=== PATIENT | female | born 1970 | race Caucasian/White ===

== ENCOUNTER 2016-09-09 08:20 | Emergency (ER) | payer OTHER ==
[2016-09-09 08:46] VITALS: BP 128/75; PULSE 85; RESP 16; TEMP 97.7; O2SAT 98
--- NOTE | 2016-09-09 08:58 | EDPHY ---
H & P Stated Complaint: ABDOMINAL PAIN +H PYLORI IN AUGUST Time Seen by Provider: 09/09/16 08:45 HPI/ROS: CHIEF COMPLAINT: Peptic ulcer disease HISTORY OF PRESENT ILLNESS: The patient is a 46-year-old female who comes to the emergency department complaining that she ran out of her antibiotics that she is taking for positive H pylori and peptic ulcer disease. Also she is here requesting an upper endoscopy. She states that she was diagnosed 2 weeks ago with H pylori. She has had chronic abdominal pain. She has a history of cholecystectomy. She was started on amoxicillin, clarithromycin and Pepcid. She states that she did not take the Pepcid regularly because they caused dizziness. The antibiotics seemed to help initially but then her pain came back when she finished them 2 days ago. She was not prescribed Flagyl because she is allergic. She did try taking the Pepcid again last night with moderate improvement. She comes here to the ER today requesting upper endoscopy because she cannot get an appointment to the gastrologist until September. She has not had a fever. REVIEW OF SYSTEMS: Constitutional: denies: chills, fever, recent illness, recent injury EENTM: denies: blurred vision, double vision, nose congestion Respiratory: denies: cough, shortness of breath Cardiac: denies: chest pain, irregular heart rate, lightheadedness, palpitations Gastrointestinal/Abdominal: Epigastric pain Genitourinary: denies: dysuria, frequency, hematuria, pain Musculoskeletal: denies: joint pain, muscle pain Skin: denies: lesions, rash, jaundice, bruising Neurological: denies: headache, numbness, paresthesia, tingling, dizziness, weakness Hematologic/Lymphatic: denies: blood clots, easy bleeding, easy bruising Immunologic/allergic: denies: HIV/AIDS, transplant EXAM: GENERAL: Well-appearing, well-nourished and in no acute distress. HEAD: Atraumatic, normocephalic. EYES: Pupils equal round and reactive to light, extraocular movements intact, sclera anicteric, conjunctiva are normal. ENT: TMs normal, nares patent, oropharynx clear without exudates. Moist mucous membranes. NECK: Normal range of motion, supple without lymphadenopathy or JVD. LUNGS: Breath sounds clear to auscultation bilaterally and equal. No wheezes rales or rhonchi. HEART: Regular rate and rhythm without murmurs, rubs or gallops. ABDOMEN: Soft, nontender, normoactive bowel sounds. No guarding, no rebound. No masses appreciated. BACK: No CVA tenderness, no spinal tenderness, step-offs or deformities EXTREMITIES: Normal range of motion, no pitting or edema. No clubbing or cyanosis. NEUROLOGICAL: Cranial nerves II through XII grossly intact. Normal speech, normal gait. 5/5 strength, normal movement in all extremities, normal sensation PSYCH: Normal mood, normal affect. SKIN: Warm, dry, normal turgor, no visible rashes or lesions. Source: Patient - Personal History LMP (Females 10-55): 22-28 Days Ago Current Tetanus Diphtheria and Acellular Pertussis (TDAP): Yes Tetanus Vaccine Date: 2007 - Medical/Surgical History Hx Asthma: No Hx Chronic Respiratory Disease: No Hx Diabetes: No Hx Cardiac Disease: No Hx Renal Disease: No Hx Cirrhosis: No Hx Alcoholism: No Hx HIV/AIDS: No Hx Splenectomy or Spleen Trauma: No Other PMH: BREAST CA with mastectomy, gallbladder issues, broken right leg - Family History Significant Family History: No pertinent family hx - Social History Smoking Status: Never smoked Alcohol Use: Sober Drug Use: None Constitutional: Initial Vital Signs Temperature (C) 36.5 C 09/09/16 08:43 Heart Rate 85 09/09/16 08:43 Respiratory Rate 16 09/09/16 08:43 Blood Pressure 128/75 H 09/09/16 08:43 O2 Sat (%) 98 09/09/16 08:43 O2 Delivery Mode Room Air Allergies/Adverse Reactions: tamoxifen [Tamoxifen] Allergy (Verified 09/09/16 08:46) FLAGYL Allergy (Uncoded 09/09/16 08:47) Home Medications: Medication Instructions Recorded Amoxicillin 09/09/16 Amoxicillin Trihydrate 500 mg PO Q12H 14 Days 09/09/16 [Amoxicillin] Clarithromycin 09/09/16 Clarithromycin 500 mg PO BID #30 tablet 09/09/16 Omeprazole 09/09/16 Medical Decision Making ED Course/Re-evaluation: The patient is disappointed that we cannot perform upper endoscopy today. She does not really wish to have further blood work. She states that was done at her primary care's office recently. I will refill her prescriptions. She may need a longer course. I also encouraged her to take the an acid as well. Also to follow up with hairspring setter as previously described. Abdominal exam is benign. She is afebrile and well-appearing. Differential Diagnosis: Partial list of the Differential diagnosis considered include but were not limited to; peptic ulcer disease, biliary disease, and although unlikely based on the history and physical exam, I also considered hepatitis, pancreatitis obstruction, appendicitis, pyelonephritis, kidney stone, urinary tract infection. I discussed these differential diagnoses and the plan with the patient as well as the usual and expected course. The patient understands that the diagnosis is provisional and that in medicine we are not always correct and that further workup is often warranted. Usual and customary warnings were given. All of the patient's questions were answered. The patient was instructed to return to the emergency department should the symptoms at all worsen or return, otherwise to followup with the physician as we discussed. Departure - Departure Disposition: Home, Routine, Self-Care Clinical Impression: Peptic ulcer disease Condition: Fair Instructions: Peptic Ulcer (ED) Referrals: May Grimm MD [Primary Care Provider] - As per Instructions Prescriptions: Amoxicillin Trihydrate [Amoxicillin] 500 mg PO Q12H 14 Days Clarithromycin 500 mg PO BID #30 tablet
== END 2016-09-09 09:11 | disposition home or self-care (01) ==
DX: K27.9 Peptic ulcer, site unspecified, unspecified as acute or chronic, without hemorrhage or perforation (principal); Z85.3 Personal history of malignant neoplasm of breast

== ENCOUNTER → 2017-04-16 | Outpatient (CLI) | payer OTHER | LOC: FIMAGING 12:41 | PROVIDERS: ATTEND Internal Medicine | DX: N93.9 Abnormal uterine and vaginal bleeding, unspecified (principal); Z85.3 Personal history of malignant neoplasm of breast; R93.8 Abnormal findings on diagnostic imaging of other specified body structures ==

== ENCOUNTER 2017-07-31 19:16 | Emergency (ER) | payer BC, OTHER ==
[2017-07-31] MEDS ORDERED: ACETAMINOPHEN 325 MG TAB PO ONE (19:54)
[2017-07-31] MEDS ORDERED: NS 1,000 ML IV ONE (19:54)
--- NOTE | 2017-07-31 19:55 | EDPHY ---
H & P Time Seen by Provider: 07/31/17 19:53 HPI/ROS: CHIEF COMPLAINT: Fever, shortness of breath HISTORY OF PRESENT ILLNESS: The patient is a 47 y/o female with a history of breast cancer (6 years ago) complaining of fever and shortness of breath. 12 days ago she developed a cough , chills, body aches, sore throat, and felt lethargic. On Wednesday, 7 days ago, she developed a runny nose. Last night she developed a subjective fever. Her son and have had similar symptoms, but no one has received medical treatment. Denies receiving the influenza vaccination this year. No chest pain, nausea, vomiting, abdominal pain, urinary or bowel complaints, numbness. REVIEW OF SYSTEMS: Aside from elements discussed in the HPI, a comprehensive 10-point review of systems was reviewed and is negative. Past Medical/Surgical History: Breast cancer with mastectomy Social History: , lives in [place], works for [employer] Smoking Status: Never smoked Physical Exam: General Appearance: Alert, pleasant Eyes: Pupils equal and round, no conjunctival pallor or injection ENT, Mouth: Mucous membranes moist Neck: Normal inspection Respiratory: Lungs are clear to auscultation, no wheezing Cardiovascular: Regular rate and rhythm Gastrointestinal: Abdomen is soft and non-tender Neurological: A&O, nonfocal Skin: Warm and dry, no rash Extremities: Nontender, no pedal edema Psychiatric: Mood and affect normal Constitutional: Initial Vital Signs Temperature (C) 37.3 C 07/31/17 19:24 Heart Rate 91 07/31/17 19:24 Respiratory Rate 20 07/31/17 19:24 Blood Pressure 104/68 07/31/17 19:24 O2 Sat (%) 95 07/31/17 19:24 O2 Delivery Mode Room Air Allergies/Adverse Reactions: tamoxifen [Tamoxifen] Allergy (Verified 07/31/17 19:23) FLAGYL Allergy (Uncoded 07/31/17 19:23) Home Medications: Medication Instructions Recorded Azithromycin [Zithromax] 250 mg PO DAILY #6 tab 07/31/17 Medical Decision Making - Diagnostics Imaging Results: Chest x-ray independently reviewed by me reveals no infiltrate. Imaging: I viewed and interpreted images myself ED Course/Re-evaluation: The patient is a 47 y/o female with a history of breast cancer presenting with fever and cough. She is nontoxic-appearing and physical exam is unremarkable. Labs and chest x-ray ordered. 1L IV NS and 650mg PO Tylenol administered. 2041: Patient's chest x-ray is normal, no evidence of pneumonia. I gave her an rx for a Zpak in case of worsening sx. 2044: Reassessed patient and discussed laboratory and imaging findings. Return precautions provided; patient is comfortable with this plan. Differential Diagnosis: Differential diagnosis includes influenza, pneumonia, acute bronchitis, PE. - Data Points Laboratory Results: Laboratory Results 07/31/17 20:10 07/31/17 20:10 07/31/17 07/31/17 20:10 20:10 WBC 5.27 10^3/uL 10^3/uL (3.80-9.50) RBC 4.52 10^6/uL 10^6/uL (4.18-5.33) Hgb 14.3 g/dL g/dL (12.6-16.3) Hct 42.7 % % (38.0-47.0) MCV 94.5 fL fL (81.5-99.8) MCH 31.6 pg pg (27.9-34.1) MCHC 33.5 g/dL g/dL (32.4-36.7) RDW 12.8 % % (11.5-15.2) Plt Count 135 10^3/uL L 10^3/uL (150-400) MPV 10.9 fL fL (8.7-11.7) Neut % (Auto) 81.6 % H % (39.3-74.2) Lymph % (Auto) 12.3 % L % (15.0-45.0) Lee % (Auto) 5.5 % % (4.5-13.0) Eos % (Auto) 0.2 % L % (0.6-7.6) Baso % (Auto) 0.2 % L % (0.3-1.7) Nucleat RBC Rel Count 0.0 % % (0.0-0.2) Absolute Neuts (auto) 4.30 10^3/uL 10^3/uL (1.70-6.50) Absolute Lymphs (auto) 0.65 10^3/uL L 10^3/uL (1.00-3.00) Absolute Monos (auto) 0.29 10^3/uL L 10^3/uL (0.30-0.80) Absolute Eos (auto) 0.01 10^3/uL L 10^3/uL (0.03-0.40) Absolute Basos (auto) 0.01 10^3/uL L 10^3/uL (0.02-0.10) Absolute Nucleated RBC 0.00 10^3/uL 10^3/uL (0-0.01) Immature Gran % 0.2 % % (0.0-1.1) Immature Gran # 0.01 10^3/uL 10^3/uL (0.00-0.10) Sodium 136 mEq/L mEq/L (135-145) Potassium 3.7 mEq/L mEq/L (3.5-5.2) Chloride 99 mEq/L mEq/L (97-110) Carbon Dioxide 23 mEq/l mEq/l (22-31) Anion Gap 14 mEq/L mEq/L (8-16) BUN 6 mg/dL L mg/dL (7-23) Creatinine 0.8 mg/dL mg/dL (0.6-1.0) Estimated GFR > 60 Glucose 100 mg/dL mg/dL (70-100) Calcium 9.2 mg/dL mg/dL (8.5-10.4) Medications Given: Discontinued Medications Acetaminophen (Tylenol) 650 mg PO EDNOW ONE Stop: 07/31/17 19:55 Last Admin: 07/31/17 20:09 Dose: 650 mg Sodium Chloride (Ns) 1,000 mls @ 0 mls/hr IV ONCE ONE; Wide Open PRN Reason: Protocol Stop: 07/31/17 19:55 Last Admin: 07/31/17 20:09 Dose: 1,000 mls Departure - Departure Disposition: Home, Routine, Self-Care Clinical Impression: Acute bronchitis Qualifiers: Bronchitis organism: other organism Qualified Code(s): J20.8 - Acute bronchitis due to other specified organisms Condition: Good Instructions: Acute Bronchitis (ED) Additional Instructions: Take Zithromax as prescribed for worsening symptoms. Call in the morning for flu results. Drink plenty of fluids. Adult Pain & Fever Control: We recommend Acetaminophen (Tylenol) and Ibuprofen (Motrin, Advil) for pain and fever control. When fever is high or pain severe, both drugs can be used at the same time, but at different intervals. Please note the time differences. Your dose is: Acetaminophen 650mg every 4 to 6 hours Ibuprofen 600mg every 8 hours with food. Follow up with your primary care provider in the next week for unimproved symptoms. Return to emergency department or seek care urgently if you're symptoms are worsening despite the above treatment, if you develop shortness of breath, if you're unable to drink fluids secondary to throat pain or other issues, if you developed, vomiting, diarrhea, or have recurrent episodes of fainting. Return immediately for high fever, severe headache or neck pain, difficulty breathing, abdominal pain, rash or other worsening of condition. Referrals: May Grimm MD [Primary Care Provider] - As per Instructions Prescriptions: Azithromycin [Zithromax] 250 mg PO DAILY #6 tab Report Scribed for: Carrol Abrams Report Scribed by: Svetlana Waite Date of Report: 07/31/17 Time of Report: 19:54 Physician Review and Approval Statement: 07/31/17 19:54 Portions of this note were transcribed by a medical csr. I personally performed a history, physical exam, medical decision making, and confirmed accuracy of information the transcribed note.
[2017-07-31 20:14] VITALS: O2SAT 94
[2017-07-31 20:25] LABS: PLATELET COUNT 135 10^3/uL (150-400)
[2017-07-31 21:03] VITALS: BP 109/53; PULSE 80; RESP 18; TEMP 99.5
== END 2017-07-31 21:01 | disposition home or self-care (01) ==
DX: J20.9 Acute bronchitis, unspecified (principal); E86.9 Volume depletion, unspecified

== ENCOUNTER 2017-08-27 13:34 | Day surgery (SDC) | payer OTHER ==
[2017-08-27] MEDS ORDERED: ALTEPLASE 2 MG VIAL IVP PRN (14:22)
[2017-08-27] MEDS ORDERED: PROTAMINE SULFATE 50 MG/5 ML VIAL IVP PRN (14:22)
[2017-08-27] MEDS ORDERED: NALOXONE HCL 0.4 MG/ML INJ IVP PRN (14:22)
[2017-08-27] MEDS ORDERED: HEPARIN 10,000 UNIT/10 ML MDV (1,000 UNIT/ML) IVP PRN (14:22)
[2017-08-27] MEDS ORDERED: MEPERIDINE 25 MG/ML SYR IVP PRN (14:22)
[2017-08-27] MEDS ORDERED: MIDAZOLAM 2 MG/2 ML VIAL IVP PRN (14:22)
[2017-08-27] MEDS ORDERED: GLUCAGON HCL 1 MG VIAL IVP PRN (14:22)
[2017-08-27] MEDS ORDERED: FLUMAZENIL 0.5 MG/5 ML MDV IVP PRN (14:22)
[2017-08-27] MEDS ORDERED: fentaNYL 100 MCG/2 ML INJ IVP PRN (14:22)
[2017-08-27] MEDS ORDERED: NS 1,000 ML IV SCH (14:30)
[2017-08-27 14:44] VITALS: RESP 16
[2017-08-27 14:53] LABS: INR 0.98 (0.83-1.16); PROTIME(PATIENT) 13.2 SEC (12.0-15.0)
--- NOTE | 2017-08-27 15:44 | PDPROPOC ---
Sedation Plan of Care Sedation Plan of Care: vital signs stable, mental status noted, patient educated of risks, benefits, alternatives, patient can tolerate sedation ASA Classification: ASA 2 Planned drugs: fentanyl, midazolam Mallampati Score: Class 2 Mallampati Reference Image: Patient passed 3-3-2 rule?: Yes
--- NOTE | 2017-08-27 15:46 | PDGENHP ---
History & Physical Chief Complaint: HOT STERNUM ON PET History of Present Illness: BREAST CA DX 6 YRS AGO. NOW WITH ELEVATED LABS AND PET AVID UPTAKE AT STERNUM Pertinent Past, Social, Family History: JEFFRY MASTECTOMY WITH RECONSTRUCTION, ORIF RT TIB/FIB, CHOLY Relevant Physical Exam: IN NO DISTRESS Cardiorespiratory Assessment: CTA, RRR
[2017-08-27 17:18] VITALS: PULSE 73; TEMP 98.1
[2017-08-27] MEDS ORDERED: ACETAMINOPHEN 325 MG TAB PO PRN (17:21)
[2017-08-27] MEDS ORDERED: ONDANSETRON 4 MG/2 ML VIAL IVP PRN (17:21)
--- NOTE | 2017-08-27 17:23 | PDRADPN ---
Radiology Procedure Note Date of Procedure: 08/27/17 Radiologist: Georgia Murrieta Pre-op Diagnosis: H/O breast CA Post-op Diagnosis: same Indication: PET avid sternal lesions Procedure: US and CT guided sternal soft tissue bx Finding(s): prelim path shows soft tissue involvement by carcinoma. Inf/Abcess present in the surg proc area at time of surgery?: No
[2017-08-27 17:56] VITALS: BP 109/67; O2SAT 97
== END 2017-08-27 18:05 | disposition home or self-care (01) ==
LOC: FIMAGING 13:34
PROVIDERS: ATTEND Internal Medicine Hematology & Oncology
PROC: 0JB63ZX Excision of Chest Subcutaneous Tissue and Fascia, Percutaneous Approach, Diagnostic (ICD-10-PCS; principal; 2017-08-27 17:00)
DX: C79.89 Secondary malignant neoplasm of other specified sites (principal); Z85.3 Personal history of malignant neoplasm of breast; Z90.13 Acquired absence of bilateral breasts and nipples
CPT/HCPCS: J2250; J2310; J3010

== ENCOUNTER → 2017-09-09 | Outpatient (CLI) | payer OTHER ==
[~2017-09-09] MED LIST: GADOBUTROL 10 ML VIAL IVP ONE
== END ==
LOC: FIMAGING 06:54
PROVIDERS: ATTEND Internal Medicine Hematology & Oncology
DX: C50.812 Malignant neoplasm of overlapping sites of left female breast (principal)
CPT/HCPCS: A9585

== ENCOUNTER 2018-04-20 08:23 | Observation (INO) | payer OTHER ==
[2018-04-20] MEDS ORDERED: ACETAMINOPHEN 500 MG TAB PO ONE (08:29)
[2018-04-20] MEDS ORDERED: ceFAZolin 2 GM/DEXTROSE 100 ML IV ONE (08:29)
[2018-04-20] MEDS ORDERED: GABAPENTIN 300 MG CAP PO ONE (08:29)
[2018-04-20] MEDS ORDERED: PHENAZOPYRIDINE HCL 200 MG TAB PO ONE (08:29)
[2018-04-20] MEDS ORDERED: LR 1,000 ML IV ONE (08:31)
--- NOTE | 2018-04-20 08:59 | PDHPUP ---
History & Physical Update H&P update statement: This history and physical update is based on an assessment of the patient which was completed after admission or registration (within 24 hours), but prior to the surgery/procedure. H&P update: H&P reviewed & patient examined, no change in patient's condition since H&P completed
--- NOTE | 2018-04-20 09:06 | PDANEPAE ---
ANE History of Present Illness 48 y/o female with breast cancer here for TAHBSO for menorrhagia ANE Past Medical History - Cardiovascular History Hx Hypertension: No Hx Arrhythmias: Yes Hx Chest Pain: No Hx Coronary Artery / Peripheral Vascular Disease: No Hx CHF / Valvular Disease: No Hx Palpitations: No Cardiovascular History Comment: was told had an irregular heart beat once but was not anything to follow up on - Pulmonary History Hx COPD: No Hx Asthma/Reactive Airway Disease: No Hx Recent Upper Respiratory Infection: No Hx Oxygen in Use at Home: No Hx Sleep Apnea: No Sleep Apnea Screening Result - Last Documented: Negative - Neurologic History Hx Cerebrovascular Accident: No Hx Seizures: No Hx Dementia: No - Endocrine History Hx Diabetes: No - Renal History Hx Renal Disorders: No - Liver History Hx Hepatic Disorders: No - Neurological & Psychiatric Hx Hx Neurological and Psychiatric Disorders: No - Cancer History Hx Cancer: Yes Cancer History Comment: breast cancer w/recurrance in sternum as of 2018 - Congenital Disorder History Hx Congenital Disorders: No - GI History Hx Gastrointestinal Disorders: Yes Gastrointestinal History Comment: hx H. Pilori - Other Health History Other Health History: wears glasses. had radiation therapy to sternum, left chest wall and axilla w/norman at site (will be 18 days out by DOS). pt is to receive injections of Xgeva & Lupron on 04/14 - Chronic Pain History Chronic Pain: No - Surgical History Prior Surgeries: ORIF RT TIB/FIB 06/2013. TONSILLECTOMY. JEFFRY BREAST MASTECTOMY 2011. RECONSTRUCTION 2012. Cholecystectomy ANE Review of Systems Review of Systems: - Exercise capacity Exercise capacity: >=4 METS METS (RN): 4 METS ANE Patient History - Allergies Allergies/Adverse Reactions: metronidazole Allergy (Verified 04/12/18 11:59) turned urine brown, vertigo, confusion tamoxifen [Tamoxifen] Allergy (Verified 04/12/18 11:59) long-term reaction that many Breast CA pts get - Home Medications Home medications: home medication list seen and reviewed Home Medications: Letrozole 04/12/18 [Last Taken 04/19/18] Lupron Depot 04/12/18 [Last Taken 04/14/18] Probiotic 04/12/18 [Last Taken 04/05/18] Vitamin D3 04/12/18 [Last Taken 04/05/18] Xgeva Injection 04/12/18 [Last Taken 04/14/18] - NPO status NPO Status: no food or drink >8 hours NPO Since - Liquids (Date): 04/19/18 NPO Since - Liquids (Time): 22:00 NPO Since - Solids (Date): 04/19/18 NPO Since - Solids (Time): 22:00 - Anes Hx Anes Hx: no prior problems - Smoking Hx Smoking Status: Never smoked - Family Anes Hx Family Hx Anesthesia Complications: none ANE Labs/Vital Signs - Vital Signs Vital Signs: reviewed preoperatively; see RN documention for details Blood Pressure: 110/67 Heart Rate: 69 Respiratory Rate: 15 O2 Sat (%): 97 Height: 170.18 cm Weight: 68.039 kg ANE Physical Exam - Airway Mallampati Score: Class 2 Mouth exam: normal dental/mouth exam - Pulmonary Pulmonary: clear to auscultation - Cardiovascular Cardiovascular: regular rate and rhythym - ASA Status ASA Status: II
[2018-04-20] MEDS ORDERED: LIDOCAINE 1% 2 ML INJ ID ONE (09:11)
[2018-04-20] MEDS ORDERED: ROCURONIUM 50 MG/5 ML VIAL ONE (10:02)
[2018-04-20] MEDS ORDERED: fentaNYL 100 MCG/2 ML INJ ONE ×2 (10:02→12:14)
[2018-04-20] MEDS ORDERED: PROPOFOL 200 MG/20 ML VIAL ONE (10:02)
[2018-04-20] MEDS ORDERED: LIDOCAINE 2% 2 ML INJ ONE ×2 (10:03)
[2018-04-20] MEDS ORDERED: BUPIVACAINE/EPI 0.5% 30 ML SDV ONE (10:03)
[2018-04-20] MEDS ORDERED: DEXAMETHASONE 4 MG/ML VIAL ONE (10:30)
[2018-04-20] MEDS ORDERED: PETROLAT,WHT/MIN OIL/SOD CHL 3.5 GM OPHT.OINT ONE (10:32)
[2018-04-20] MEDS ORDERED: NALOXONE HCL 0.4 MG/ML INJ IVP PRN (10:59)
[2018-04-20] MEDS ORDERED: oxyCODONE IR 5 MG TAB PO PRN (10:59)
[2018-04-20] MEDS ORDERED: ONDANSETRON 4 MG/2 ML VIAL IVP PRN ×2 (10:59→12:09)
[2018-04-20] MEDS ORDERED: LR 500 ML IV PRN (10:59)
[2018-04-20] MEDS ORDERED: ACETAMINOPHEN 500 MG TAB PO PRN (10:59)
[2018-04-20] MEDS ORDERED: fentaNYL 100 MCG/2 ML INJ IVP PRN (10:59)
[2018-04-20] MEDS ORDERED: MEPERIDINE 25 MG/0.5 ML AMP IVP PRN (10:59)
[2018-04-20] MEDS ORDERED: KETOROLAC 30 MG/1 ML SDV ONE (11:01)
[2018-04-20] MEDS ORDERED: ONDANSETRON 4 MG/2 ML VIAL ONE ×2 (11:01→11:45)
[2018-04-20] MEDS ORDERED: GLYCOPYRROLATE 0.2 MG/1 ML VIAL ONE ×2 (11:03→11:05)
[2018-04-20] MEDS ORDERED: NEOSTIGMINE METHYLSULFATE 5 MG/5 ML SYR ONE (11:03)
--- NOTE | 2018-04-20 11:11 | POSTANESTH ---
Post Anesthetic Evaluation Respiratory Status: Normal, Stable Level of Consciousness/Mental Status: Can Participate in Eval Pain Control: Adequate, Prn Tx Ordered Nausea/Vomiting Control: Adequate, Prn Tx Ordered Complications Possibly Related to Anesthesia: None Noted
--- NOTE | 2018-04-20 11:54 | POSTOPPROG ---
Post Op Note Date of Operation: 04/20/18 Surgeon: Bill Pina Vice President Financial: Juana Hood Anesthesiologist: Christal Anesthesia: GET(General Endotracheal) Pre-op Diagnosis: Menorrhagia, uterine prolapse Post-op Diagnosis: Same plus endometriosis Procedure: Robotic hyst/BSO, US Lig colpopexy, excision of endo, bilat ureterolysis Findings: Endo Inf/Abcess present in the surg proc area at time of surgery?: No EBL: Minimal Complications: None
[2018-04-20] MEDS ORDERED: PROMETHAZINE HCL 25 MG/ML INJ ONE (11:55)
[2018-04-20] MEDS: PROMETHAZINE HCL 25 MG/ML INJ IVP PRN ×2 (11:57→12:12)
[2018-04-20] MEDS ORDERED: PROMETHAZINE HCL 25 MG/ML INJ IVP PRN (12:09)
[2018-04-20] MEDS ORDERED: ONDANSETRON DISINTEGRATING 4 MG TAB PO PRN (12:09)
[2018-04-20] MEDS ORDERED: HYDROmorphONE/DILAUDID 1 MG/ML INJ IVP PRN (12:09)
[2018-04-20] MEDS ORDERED: OXYCODONE/APAP 5/325 TAB PO PRN (12:09)
[2018-04-20] MEDS ORDERED: LR 1,000 ML IV SCH (12:30)
--- NOTE | 2018-04-20 13:22 | GOP ---
DATE OF OPERATION: 04/20/2018 SURGEON: Bill Pina MD TEACHER COUNSELOR: Juana Hood CFA ANESTHESIA: General. PREOPERATIVE DIAGNOSIS: 1. Menorrhagia. 2. Breast cancer. 3. Uterine prolapse. POSTOPERATIVE DIAGNOSIS: 1. Menorrhagia. 2. Breast cancer. 3. Uterine prolapse. 4. Endometriosis. PROCEDURE PERFORMED: 1. Robotic-assisted total laparoscopic hysterectomy, bilateral salpingo-oophorectomy. 2. Excision of endometriosis in posterior cul-de-sac, bilateral ovarian fossae. 3. Bilateral ureterolysis. 4. Uterosacral ligament colpopexy. 5. Pelvic washings. FINDINGS: SPECIMENS: 1. Uterus, tubes, and ovaries. 1. Pelvic washings. 2. ESTIMATED BLOOD LOSS: Scant. DESCRIPTION OF PROCEDURE: The patient was taken to the operating room where she was identified. Gen eral anesthesia was administered and found to be adequate. She was placed in the lithotomy position and prepared and draped in normal sterile fashion. A [employer] uterine manipulator was placed into the e ndometrial cavity and sutured to the cervix. A Mancia catheter was then placed. A 1 cm infraumbilical incision was made with a scalpel. The Veress needle with the CO2 gas flowing w as advanced into the peritoneal cavity. The abdomen was then insufflated with carbon dioxide gas. T he 12 mm trocar, followed by the laparoscope were then inserted. The upper abdomen was unremarkable. There was no evidence of any abnormality on the diaphragms, liver, stomach, or upper abdominal jacquelyn l. 2 lateral ports were placed in the right and 1 left under direct visualization. She then was lauren teresa in Trendelenburg position and the Da Anjali robot docked on the left side. The instruments were t hen brought into the abdominal cavity under direct visualization. The uterus, tubes, and ovaries were grossly unremarkable with the exception of endometriosis in the p osterior cul-de-sac, bilateral ovarian fossae overlying both ureters, and the uterosacral ligaments. There were a few filmy adhesions. No other abnormalities, such as evidence suggesting metastatic br east cancer was seen. Pelvic washings were then obtained. The left round ligament was divided. The anterior leaf of the b road ligament was then incised toward the bifurcation of the left common iliac vessels. A window was created anterior to the left ureter, skeletonizing the infundibulopelvic vessels, which were then ca uterized and transected. The anterior lip of the broad ligament was then incised over the left uteri ne vessels and across the cervix. The bladder gently dissected off the cervix and upper vagina. The left uterine vasculature was then cauterized and transected. The exact same procedure was performed on the patient's right side. The posterior cul-de-sac peritoneum with endometriosis was excised from the distal rectum up to the c ervix and laterally to both uterosacral ligaments. A bilateral ureterolysis was required given the e ndometriosis overlying both ureters. The peritoneum at the pelvic brims was incised. The ureters we re gently dissected free and lateralized off the overlying peritoneum, and endometriosis from the pel tim brim was all the way to the bladder. Once this was accomplished, the entire ovarian fossa perito neum bilaterally was completely excised. A circumferential colpotomy incision was then made with the hot shantelle and all specimens were removed through the vagina. The vaginal cuff was closed with a ru nning suture of 0 V-Loc 180. A bilateral uterosacral ligament colpopexy was performed by attaching the lateral aspects of the vagi nal cuff to the ipsilateral uterosacral ligaments near the coccygeal-sacrospinous ligament complexes. The pelvis was then irrigated with sterile saline and hemostasis was present. The robot was then u ndocked. The fascia was closed with 0 Vicryl, skin with 4-0 Monocryl. Anesthesia was reversed. The patient taken the PACU, awake in stable condition. COMPLICATIONS: None. DISPOSITION: Patient stable to PACU. /[id number]/MODL
[2018-04-20] MEDS: KETOROLAC 30 MG/1 ML SDV IVP SCH ×2 (13:57→20:16)
[2018-04-20] MEDS: SIMETHICONE 80 MG TAB CHEW PO SCH ×3 (14:05→21:00)
[2018-04-20] MEDS: GABAPENTIN 300 MG CAP PO SCH ×2 (17:51→20:21)
[2018-04-20] MEDS: DOCUSATE SODIUM 100 MG CAP PO SCH (20:21)
[2018-04-20] MEDS ORDERED: LETROZOLE 2.5 MG TAB PO SCH (21:00)
[2018-04-21] MEDS: KETOROLAC 30 MG/1 ML SDV IVP SCH ×2 (02:05→09:27)
[2018-04-21 04:54] LABS: PLATELET COUNT 161 10^3/uL (150-400)
[2018-04-21] MEDS ORDERED: KETOROLAC 30 MG/1 ML SDV IVP ONE (09:30)
[2018-04-21] MEDS: DOCUSATE SODIUM 100 MG CAP PO SCH (09:43)
[2018-04-21] MEDS: GABAPENTIN 300 MG CAP PO SCH (09:44)
[2018-04-21] MEDS ORDERED: KETOROLAC 30 MG/1 ML SDV IVP SCH (09:45)
--- NOTE | 2018-04-21 10:37 | GDS ---
DISCHARGE DIAGNOSES: 1. Menorrhagia. 2. Endometriosis. 3. Uterine prolapse. 4. Breast cancer. PROCEDURES: 1. Robotic-assisted total laparoscopic hysterectomy, bilateral salpingo-oophorectomy. 2. Excision of endometriosis. 3. Uterosacral ligament colpopexy. 4. Bilateral ureterolysis. HOSPITAL COURSE: The patient is a 48-year-old woman with heavy menses. She was taken to the operati ng room on 04/20/2018, where she underwent the above-mentioned procedures without complications. Her postop course was uneventful. The morning after surgery, she was ambulating, voiding, and tolera ting a general diet. She was discharged home on postoperative day #1 in good condition. MEDICATIONS,: Include Percocet for pain. FOLLOWUP: She is to follow up in the office 2 weeks after discharge. /[id number]/MODL
[2018-04-21] MEDS: SIMETHICONE 80 MG TAB CHEW PO SCH ×2 (13:37→16:28)
[2018-04-21 14:07] VITALS: BP 106/71
== END 2018-04-21 16:25 | disposition home or self-care (01) ==
LOC: F3E 08:23 → FOB 13:09
PROVIDERS: ADMIT Obstetrics & Gynecology; ATTEND Obstetrics & Gynecology
DX: N92.0 Excessive and frequent menstruation with regular cycle (principal); N80.3 Endometriosis of pelvic peritoneum; N81.4 Uterovaginal prolapse, unspecified; C50.119 Malignant neoplasm of central portion of unspecified female breast
CPT/HCPCS: 57425; 58571; 58662; G0378; J0690; J1100; J1885; J2270; J2405; J2550; J2704; J2710; J3010

== ENCOUNTER 2018-04-23 12:59 | Emergency (ER) | payer OTHER ==
--- NOTE | 2018-04-23 13:34 | EDPHY ---
General - History History Review: I reviewed the patient's medical records Smoking Status: Never smoked Time Seen by Provider: 04/23/18 13:28 Narrative: This patient was evaluated and managed by STEWART Saenz. I agree with the plan of care. I am the secondary supervising physician. (SalimakelseyViviana A) CHIEF COMPLAINT: Constipation HISTORY OF PRESENT ILLNESS: Patient presents by private vehicle with complaints of constipation. She is postoperative day 3 from a robot assisted laparoscopic and vaginal hysterectomy with bilateral salpingo-oophorectomy. She has her 2, ER positive breast cancer , status post bilateral mastectomy. She has been on radiation and chemotherapy , thus they recommended hysterectomy and oophorectomy. She says that she has been doing well postoperatively with decreasing need for pain medication. She last took her narcotics last night 7:00 p.m.. She states that she has not had a bowel movement since discharge home on the . She feels that she needs to go but cannot go. She does not feel any stool in the rectal vault. She has no generalized abdominal pain but describes it as"I really feel like any to go to the bathroom." Associated with some nausea. No fever. No bleeding. No urinary complaints. She has a Mancia catheter in place at the recommendation that has been passing urine freely. REVIEW OF SYSTEMS: 10 systems were reviewed and negative with the exception of the elements mentioned in the history of present illness. PCP: No primary SPECIALISTS: Dr. Hagen, Oncology Dr. Pina, Plant Etiologist-Onc PAST MEDICAL HISTORY: Breast cancer, cholelithiasis PAST SURGICAL HISTORY: Postop day 3 hysterectomy and bilateral salpingo-oophorectomy SOCIAL HISTORY: Nonsmoker. Lives independently. 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 Ambulatory Head: normocephalic, atraumatic Eyes: Pupils equal and round, no conjunctival pallor or injection ENT, Mouth: Mucous membranes moist Neck: Normal inspection, supple, non-tender Respiratory: Lungs are clear to auscultation Cardiovascular: Regular rate and rhythm no murmur Gastrointestinal: Abdomen is soft and nondistended. There are multiple laparoscopic incisions that are clean, dry and intact. No dehiscence. Bowel sounds are present all 4 quadrants. No tympany. No rigidity. No guarding. Rectal: Rectal exam performed with female (Noemi) present. There was no stool in the rectal vault. No abnormality palpated. Skin: Warm and dry, no rash. Surgical incisions are clean, dry and intact. Extremities: Nontender, no pedal edema Psychiatric: Mood and affect normal DIFFERENTIAL DIAGNOSES: Including but not limited to constipation, obstipation, ileus, postoperative complication MDM: 1:35 p.m. Constipation on postoperative day 3 from robotic assisted hysterectomy with bilateral salpingo oophorectomy and bladder sling. She complains of generalized discomfort throughout her abdomen but has a benign abdominal examination is. Her incisions are all clean, dry and intact. 2:30 p.m. I have attempted digital rectal exam for disimpaction but there is no stool in the rectal vault. Patient has verbally consented to enema. 3:30 p.m. Still awaiting her enema. 4:00 p.m. Soap suds Enema starting now. 4:40 p.m. Patient has tolerated her enema and will try bowel movement at this time. She is feeling better. 5:20 p.m. Patient re-evaluated. She has had 1 small bowel movement 1 medium. She says she feels better regarding this but does have some nausea. Her spouse is now bedside. We did sit down and discuss the nausea and she thinks this may be partially related to lack of food today. I have ordered oral Zofran. I did discuss and offered a CT scan abdomen pelvis but she has declined. She states she does not have any pain at this time. She does have a history of acid reflux and has not had her medication for this. She would like to take the Zofran and try and go home. We discussed clear liquid diet, advancing slowly as tolerated. We discussed strict ED precautions for return of pain, difficulty with bowel movement, persistent nausea or any vomiting. Discussed continuation of stool softener with MiraLax. Enemas may be used as needed. Strict ED precautions. She is comfortable this plan. Discharged home stable condition with her spouse. SUPERVISION: This patient was independently evaluated without direct involvement of or examination by the attending physician. CONSULTATION: None (Alexander Saenz) - Objective Vital Signs: Initial Vital Signs Temperature (C) 97.9 F 04/23/18 13:02 Heart Rate 70 04/23/18 13:02 Respiratory Rate 18 04/23/18 13:02 Blood Pressure 95/74 L 04/23/18 13:02 O2 Sat (%) 98 04/23/18 13:02 O2 Delivery Mode Room Air Allergies/Adverse Reactions: metronidazole Allergy (Verified 04/23/18 20:36) turned urine brown, vertigo, confusion tamoxifen [Tamoxifen] Allergy (Verified 04/23/18 20:36) half-way reaction that many Breast CA pts get Home Medications: Medication Instructions Recorded Herbals/Supplements -Info Only 1 ea PO DAILY 04/24/18 Letrozole [Femara 2.5 mg (*)] 2.5 mg PO DAILY18 04/24/18 Palbociclib [Ibrance] 100 mg PO DAILY 04/24/18 Sucralfate [Carafate 1gm/10ml Oral 1 gm PO QID PRN 04/24/18 Liquid (*)] Tears/Dextran 70/Hypromellose 1 drop EACHEYE Q2 PRN 04/24/18 [Natural Balance Tears (*)] Medications Given: Discontinued Medications Ondansetron HCl (Zofran Odt) 4 mg PO EDNOW ONE Stop: 04/23/18 17:23 Last Admin: 04/23/18 17:24 Dose: 4 mg Departure - Departure Disposition: Home, Routine, Self-Care Clinical Impression: Fecal impaction Constipation Qualifiers: Constipation type: drug induced constipation Qualified Code(s): K59.03 - Drug induced constipation Condition: Good Instructions: Constipation (ED), High Fiber Diet (ED), Fleet Enema (ED) Additional Instructions: 1. MiraLax [id number], 1 packet daily 2. Continue your previous prescriptions of nausea medication and Carafate 3. Consider Mylanta [id number] for nausea and gastritis care 4. ED precautions for return of constipation, any development of abdominal pain , signs of infection of the incisions, fever Referrals: Janie Hagen MD [Primary Care Provider] - As per Instructions Bill Pina MD [Medical Doctor] - As per Instructions
[2018-04-23 17:13] VITALS: BP 119/74
[2018-04-23] MEDS ORDERED: ONDANSETRON DISINTEGRATING 4 MG TAB PO ONE (17:22)
[2018-04-24] MEDS ORDERED: NS 1,000 ML IV SCH (18:30)
== END 2018-04-23 17:32 | disposition home or self-care (01) ==
DX: K59.03 Drug induced constipation (principal)

== ENCOUNTER 2018-04-23 20:30 | Inpatient (IN) | payer OTHER ==
--- NOTE | 2018-04-23 20:56 | EDPHY ---
H & P Stated Complaint: CONSTIPATION S/P HIST SURGERY, SEEN EARLIER FOR SAME - Personal History LMP (Females 10-55): Hysterectomy Current Tetanus/Diphtheria Vaccine: Yes Current Tetanus Diphtheria and Acellular Pertussis (TDAP): Yes Tetanus Vaccine Date: 2007 - Medical/Surgical History Hx Asthma: No Hx Chronic Respiratory Disease: No Hx Diabetes: No Hx Cardiac Disease: No Hx Renal Disease: No Hx Cirrhosis: No Hx Alcoholism: No Hx HIV/AIDS: No Hx Splenectomy or Spleen Trauma: No Other PMH: BREAST CA with mastectomy, gallbladder issues, broken right leg, hysterectomy, JUST FINISHED RADIATION FOR BREAST CA RETURNED - Social History Smoking Status: Never smoked Time Seen by Provider: 04/23/18 20:42 HPI/ROS: CHIEF COMPLAINT: Abdominal pain, dyspnea HISTORY OF PRESENT ILLNESS: 48-year-old female postop day 3 post laparoscopic vaginal hysterectomy with bilateral salpingo-oophorectomy by Dr. Bill Pina. History of breast cancer post bilateral mastectomy, last radiation session 3 weeks ago in [place]. She was seen the ER earlier today for complaints of constipation, had rectal examination, enema, felt like she was doing better. Returns to the ER with her complaining of worsening abdominal pain, new dyspnea. REVIEW OF SYSTEMS: 10 systems reviewed and negative with the exception of the elements mentioned in the history of present illness PAST MEDICAL & SURGICAL HISTORY: Postop day 3 hysterectomy bilateral salpingo- oophorectomy. Breast cancer. SOCIAL HISTORY: . PHYSICAL EXAM (Prior to examination, patient consented to physical exam, hands were washed and my usual and customary physical exam procedures followed) 1) GENERAL: Well-developed, well-nourished, alert and oriented. Appears uncomfortable, moaning, aying in a left lateral recumbent position. No signs of respiratory distress 2) HEAD: Normocephalic, atraumatic 3) HEENT: Pupils equal, round, reactive to light bilaterally. Sclera anicteric. Nasopharynx, oropharynx, clear, no lesions. Moist Mucous membranes. Ears bilaterally with normal tympanic membranes. 4) NECK: Full range of motion, no meningeal signs. 5) LUNGS: Clear auscultation bilaterally, no wheezes, no rhonchi, no retractions. 6) HEART: Regular rate and rhythm, no murmur, no heave, no gallop. 7) ABDOMEN: Diffusely tender to palpation all quadrants., 8) MUSCULOSKELETAL: Moving all extremities, no focal areas of tenderness, no obvious trauma. No peripheral edema or discoloration. 9) BACK: No CVA tenderness, no midline vertebral tenderness, no fluctuance, no step-off, no obvious trauma, no visual or palpable abnormality. 10) SKIN: No rash, no petechiae. 11) Psychiatric: Patient is oriented X 3, there is no agitation. DIFFERENTIAL DIAGNOSIS: In no particular order including but not limited to pulmonary embolus, postoperative infection, postoperative bleeding, postoperative pain, postoperative ileus (Colleen Parry) Constitutional: Initial Vital Signs Temperature (C) 37.1 C 04/23/18 20:32 Heart Rate 69 04/23/18 20:32 Respiratory Rate 18 04/23/18 20:32 Blood Pressure 111/60 04/23/18 20:32 O2 Sat (%) 98 04/23/18 20:32 O2 Delivery Mode Room Air Allergies/Adverse Reactions: metronidazole Allergy (Verified 04/23/18 20:36) turned urine brown, vertigo, confusion tamoxifen [Tamoxifen] Allergy (Verified 04/23/18 20:36) lobsterman reaction that many Breast CA pts get Home Medications: Medication Instructions Recorded Herbals/Supplements -Info Only 1 ea PO DAILY 04/24/18 Letrozole [Femara 2.5 mg (*)] 2.5 mg PO DAILY18 04/24/18 Palbociclib [Ibrance] 100 mg PO DAILY 04/24/18 Sucralfate [Carafate 1gm/10ml Oral 1 gm PO QID PRN 04/24/18 Liquid (*)] Tears/Dextran 70/Hypromellose 1 drop EACHEYE Q2 PRN 04/24/18 [Natural Balance Tears (*)] Medical Decision Making ED Course/Re-evaluation: 8:54 p.m.: I reviewed the patient's old medical records. Of concerned this patient is her complaints of progressive abdominal pain which may be result of constipation however in the presence of being postoperative day 3 discussed possible complications and recommended CT imaging of the abdomen and pelvis in addition to laboratory studies. Furthermore, high pretest suspicion for pulmonary embolus in the presence of recent surgery, breast cancer. Recommended CT angiography of the chest. Indications risks benefits discussed with patient and she consents. [I saw this patient independently based on established practice protocols. ] Care of patient under supervision of [ secondary] supervising physician Dr Mitchell [with whom I discussed case]. 11:10 p.m.: Patient was re-evaluated by myself. Patient was also seen and examined by Dr. Kris Frederick in the ER. Patient complaining of continued intractable nausea and abdominal pain. Her imaging studies show no definitive acute surgical abdominal pathology, CT of the chest is negative for pulmonary embolus. The specific etiology of her symptoms is incompletely clear at this time. Given her continued nausea and pain discussed admission which she is agreeable with. 11:27 p.m.: Consultation with Dr. Will who will admit patient for observation (Colleen Parry) - Data Points Laboratory Results: Laboratory Results 04/24/18 04:24 04/24/18 04:24 Medications Given: Enoxaparin Sodium (Lovenox) 40 mg SC DAILY [facility] Stop: 10/21/18 08:59 Last Admin: 04/24/18 11:32 Dose: Not Given Sodium Chloride (Ns) 1,000 mls @ 100 mls/hr IV CONT [facility] Stop: 10/20/18 23:44 Last Admin: 04/25/18 01:19 Dose: 1,000 mls Letrozole (Femara) 2.5 mg PO DAILY18 [facility] Stop: 10/21/18 17:59 Last Admin: 04/24/18 17:29 Dose: Not Given Lorazepam (Ativan) 0.5 - 1 mg PO Q8HRS PRN PRN Reason: Anxiety, Able to Take PO Stop: 10/20/18 23:42 Last Admin: 04/25/18 03:20 Dose: 0.5 mg Ondansetron HCl (Zofran) 4 mg IVP Q4HRS PRN PRN Reason: Nausea/Vomiting, Can't Take PO Stop: 10/20/18 23:42 Last Admin: 04/24/18 13:30 Dose: 4 mg Pantoprazole Sodium (Protonix) 40 mg IVP BID [facility] Stop: 10/21/18 20:59 Last Admin: 04/25/18 02:02 Dose: 40 mg Senna/Docusate Sodium (Senokot-S) 1 - 2 tab PO BID [facility] PRN Reason: Protocol Stop: 10/21/18 08:59 Last Admin: 04/24/18 22:29 Dose: Not Given Sucralfate (Carafate Suspension) 1 gm PO QID PRN PRN Reason: Stomach Irritation Stop: 10/21/18 12:53 Last Admin: 04/25/18 02:48 Dose: 1 gm Discontinued Medications Al Hydroxide/Mg Hydroxide (Maalox Susp) 30 ml PO ONCE ONE Stop: 04/23/18 22:32 Last Admin: 04/23/18 22:37 Dose: 30 ml Hyoscyamine Sulfate (Levsin, Hyomax-Sl) 0.25 mg PO ONCE ONE Stop: 04/23/18 22:32 Last Admin: 04/23/18 22:38 Dose: 0.25 mg Sodium Chloride (Ns) 1,000 mls @ 0 mls/hr IV ONCE ONE PRN Reason: Wide Open Stop: 04/23/18 21:16 Last Admin: 04/23/18 21:18 Dose: 1,000 mls Lidocaine (Lidocaine 2% Viscous) 15 ml PO ONCE ONE Stop: 04/23/18 22:32 Last Admin: 04/23/18 22:38 Dose: 15 ml Lorazepam (Ativan Injection) 0.5 mg IVP EDNOW ONE Stop: 04/23/18 21:23 Last Admin: 04/23/18 21:35 Dose: 0.5 mg Pantoprazole Sodium (Protonix) 40 mg IVP ONCE ONE Stop: 04/24/18 01:11 MST Last Admin: 04/24/18 01:52 MDT Dose: 40 mg Pantoprazole Sodium (Protonix) 40 mg PO DAILY [facility] Stop: 10/21/18 08:59 Last Admin: 04/24/18 08:16 Dose: 40 mg Point of Care Test Results: Chemistry 04/23/18 21:01 POC Sodium 138 mEq/L mEq/L (135-145) POC Potassium 3.8 mEq/L mEq/L (3.3-5.0) POC Chloride 104 mEq/L mEq/L (97-110) POC BUN 11 mg/dL mg/dL (7-23) POC Creatinine 1.1 mg/dL H mg/dL (0.6-1.0) POC Glucose 95 mg/dL mg/dL (70-100) ISTAT H&H 04/23/18 21:01 POC Hgb 12.6 gm/dL gm/dL (12.6-16.3) POC Hct 37 % L % (38-47) Departure - [facility] Clinical Impression: Intractable nausea and vomiting Qualifiers: Vomiting type: unspecified Qualified Code(s): R11.2 - Nausea with vomiting, unspecified Condition: Fair
[2018-04-23 21:05] LABS: PLATELET COUNT 147 10^3/uL (150-400)
[2018-04-23] MEDS ORDERED: NS 1,000 ML IV ONE (21:15)
[2018-04-23] MEDS ORDERED: LORazepam 2 MG/ML INJ IVP ONE (21:22)
[2018-04-23] MEDS ORDERED: IOPAMIDOL (ISOVUE 370) 100 ML BTL IV ONE (21:37)
[2018-04-23] MEDS ORDERED: TDAP ADULT 0.5 ML INJ (BOOSTRIX) IM ONE (21:43)
[2018-04-23] MEDS ORDERED: LIDOCAINE 2% VISCOUS 15 ML UDCUP PO ONE (22:31)
[2018-04-23] MEDS ORDERED: HYOSCYAMINE SULFATE 0.125 MG TAB PO ONE (22:31)
[2018-04-23] MEDS ORDERED: MAG HYDROX/AL HYDROX/SIMETH 30 ML UDCUP PO ONE (22:31)
[2018-04-23] MEDS ORDERED: diphenhydrAMINE 25 MG CAP PO PRN (23:43)
[2018-04-23] MEDS ORDERED: ONDANSETRON DISINTEGRATING 4 MG TAB PO PRN (23:43)
[2018-04-23] MEDS ORDERED: ONDANSETRON 4 MG/2 ML VIAL IVP PRN (23:43)
[2018-04-23] MEDS ORDERED: HYDROCODONE/APAP 5/325 TAB PO PRN (23:43)
[2018-04-23] MEDS ORDERED: LORazepam 0.5 MG TAB PO PRN (23:43)
[2018-04-23] MEDS ORDERED: ACETAMINOPHEN 325 MG TAB PO PRN (23:43)
[2018-04-23] MEDS ORDERED: PROMETHAZINE HCL 25 MG/ML INJ IVP PRN (23:43)
--- NOTE | 2018-04-24 01:07 | PDGENHP ---
History and Physical - Chief Complaint Upper abdominal pain and intractable nausea - History of Present Illness Source-patient provides history appears reliable. EMR was reviewed and case discussed with ED provider. HPI-This is a very pleasant 48-year-old female with past medical history significant for HER2 positive breast cancer status post bilateral mastectomy on oral chemotherapy and status post radiation treatment (completed last 3 weeks ago) and most recently POD #3 status post a robotic assisted hysterectomy with BSO, ureterocele acral ligament colpopexy, bilateral ureterolysis, and excision of endometriosis who presents emergency department today for the 2nd time with complaints of abdominal pain and intractable nausea. Patient reports that she was discharged with Percocet which she took and last dose was at 7:00 p.m.. She has been trying to taper down to Tylenol however she has developed increasing upper abdominal discomfort and nausea. She has had decreased oral intake over the last several days and reports she has not really eaten any solid food. She was initially seen in the ED with concerns for possible constipation as she had not had a bowel movement since her surgery. She underwent attempt at a digital in disimpaction with subsequent enema in the ED and was discharged home. Patient had subsequently been taking laxatives at home with resultant diarrhea but denies any melena or hematochezia. She reports some chills but no fevers. She has not had any vomiting. Patient reports her postoperative lower abdominal pain is fairly well controlled is mostly complaining of this epigastric left upper quadrant type GI upset which she feels consistent with her history of gastritis (no reported history of ulcers). She was previously on a PPI at 1 point sleep been on any H2 blockers or PPI recently. 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 Gastritis - Surgical History Additional surgical history: Bilateral mastectomy. Right tib-fib fracture repair. Cholecystectomy. Tonsillectomy. Robotic hysterectomy, BSO, excision of endometriosis, uterosacral ligament colpopexy, bilateral ureterolysis - Family History Additional family history: Father with history of CAD and CABG x2 - late 40. Multiple cancers at elderly age in several family members. - Social History Smoking Status: Never smoked Alcohol Use: Rarely Drug Use: None Additional social history: Patient is . 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 Cor status-full. Review of Systems Review of Systems: ROS: 10pt was reviewed & negative except for what was stated in HPI & below Constitutional: Reports: chills EENMT: Reports: other (Dry mouth) Cardiac: Reports: no symptoms Respiratory: Reports: shortness of breath (Associated with rising nausea sensation non with exertion or at baseline) Gastrointestinal: Reports: abdominal pain (Upper abdominal pain), diarrhea, nausea. Denies: vomitting, black stools, rectal bleeding, abdominal distention Genitourinary: Reports: other (Retention postoperatively with the a Wesley catheter). Denies: hematuria Muscolosketal: Reports: no symptoms Skin: Reports: no symptoms Neurological: Reports: no symptoms Hematologic/Lymphatic: Reports: no symptoms Physical Exam Physical Exam: Selected Entries 04/23/18 20:32 Blood Pressure Automatic Method Heart Rate 69 Respiratory 18 Rate O2 Sat (%) 98 Temperature (C) 37.1 C Blood Pressure 111/60 Mean Arterial 77 Pressure (MAP) O2 Delivery Room Air Mode Temperature Oral Source Temp Pulse Resp BP Pulse Ox 37.1 C 74 18 116/62 96 04/23/18 20:32 04/24/18 00:00 04/24/18 00:00 04/24/18 00:00 04/24/18 00:00 Constitutional: no apparent distress, other (NAD. Patient appears quite fatigued and acutely ill but nontoxic. She is increasingly somnolent during the interview after receiving Ativan.) Eyes: PERRL (Decreased reactivity to light bilaterally but symmetric.), anicteric sclera, EOMI, No scleral injection Ears, Nose, Mouth, Throat: dry mucous membranes, other (No nasal discharge. Lips are chapped.), No poor dentition Cardiovascular: regular rate and rhythym, no murmur, rub, or gallop, pulses symmetric bilaterally, No edema Peripheral Pulses: 2+: dorsalis-pedis (R), dorsalis-pedis (L) Respiratory: no respiratory distress, no rales or rhonchi, clear to auscultation , No expiratory wheeze, No inspiratory crackles, No respiratory distress Gastrointestinal: normoactive bowel sounds, soft, non-tender abdomen, no palpable masses, other (Patient with multiple trocar sites with Steri-Strips in place. No surrounding erythema or drainage. Dry clean intact.), No distension Genitourinary: no bladder tenderness, wesley in urethra (Wesley catheter in place with a leg bag.) Skin: warm, normal color, no rashes or abrasions, No rash Musculoskeletal: full muscle strength (Patient able to stand and walk independently. Moves all extremities. Does appear fatigued. Strength distal intact.), No generalized weakness Neurologic: AAOx3, sensation intact bilaterally, other (Grossly nonfocal exam.) , No facial droop Psychiatric: interacting appropriately, not anxious, not encephalopathic, other (Patient affect slightly flat but she does appear ill and fatigued but she is otherwise cooperative and pleasant.) Lab Data & Imaging Review 04/23/18 21:00 04/23/18 21:00 WBC 4.41 10^3/uL (3.80-9.50) 04/23/18 21:00 RBC 3.83 10^6/uL (4.18-5.33) L 04/23/18 21:00 Hgb 12.6 g/dL (12.6-16.3) 04/23/18 21:00 POC Hgb 12.6 gm/dL (12.6-16.3) 04/23/18 21:01 Hct 36.1 % (38.0-47.0) L 04/23/18 21:00 POC Hct 37 % (38-47) L 04/23/18 21:01 MCV 94.3 fL (81.5-99.8) 04/23/18 21:00 MCH 32.9 pg (27.9-34.1) 04/23/18 21:00 MCHC 34.9 g/dL (32.4-36.7) 04/23/18 21:00 RDW 11.5 % (11.5-15.2) 04/23/18 21:00 Plt Count 147 10^3/uL (150-400) L 04/23/18 21:00 MPV 10.2 fL (8.7-11.7) 04/23/18 21:00 Neut % (Auto) 83.6 % (39.3-74.2) H 04/23/18 21:00 Lymph % (Auto) 7.9 % (15.0-45.0) L 04/23/18 21:00 [place] % (Auto) 6.6 % (4.5-13.0) 04/23/18 21:00 Eos % (Auto) 0.9 % (0.6-7.6) 04/23/18 21:00 Baso % (Auto) 0.5 % (0.3-1.7) 04/23/18 21:00 Nucleat RBC Rel Count 0.0 % (0.0-0.2) 04/23/18 21:00 Absolute Neuts (auto) 3.69 10^3/uL (1.70-6.50) 04/23/18 21:00 Absolute Lymphs (auto) 0.35 10^3/uL (1.00-3.00) L 04/23/18 21:00 Absolute Monos (auto) 0.29 10^3/uL (0.30-0.80) L 04/23/18 21:00 Absolute Eos (auto) 0.04 10^3/uL (0.03-0.40) 04/23/18 21:00 Absolute Basos (auto) 0.02 10^3/uL (0.02-0.10) 04/23/18 21:00 Absolute Nucleated RBC 0.00 10^3/uL (0-0.01) 04/23/18 21:00 Immature Gran % 0.5 % (0.0-1.1) 04/23/18 21:00 Immature Gran # 0.02 10^3/uL (0.00-0.10) 04/23/18 21:00 RBC/WBC/PLT Morphology TNP 04/23/18 21:00 Platelet Estimate TNP 04/23/18 21:00 POC Sodium 138 mEq/L (135-145) 04/23/18 21:01 Sodium 136 mEq/L (135-145) 04/23/18 21:00 POC Potassium 3.8 mEq/L (3.3-5.0) 04/23/18 21:01 Potassium 4.1 mEq/L (3.3-5.0) 04/23/18 21:00 POC Chloride 104 mEq/L (97-110) 04/23/18 21:01 Chloride 104 mEq/L (97-110) 04/23/18 21:00 Carbon Dioxide 23 mEq/l (22-31) 04/23/18 21:00 Anion Gap 9 mEq/L (6-14) 04/23/18 21:00 POC BUN 11 mg/dL (7-23) 04/23/18 21:01 BUN 12 mg/dL (7-23) 04/23/18 21:00 Creatinine 1.1 mg/dL (0.6-1.0) H 04/23/18 21:00 POC Creatinine 1.1 mg/dL (0.6-1.0) H 04/23/18 21:01 Estimated GFR 53 04/23/18 21:00 Glucose 93 mg/dL (70-100) 04/23/18 21:00 POC Glucose 95 mg/dL (70-100) 04/23/18 21:01 Calcium 8.1 mg/dL (8.5-10.4) L 04/23/18 21:00 Total Bilirubin 1.0 mg/dL (0.1-1.4) 04/23/18 21:00 Conjugated Bilirubin 0.1 mg/dL (0.0-0.5) 04/23/18 21:00 Unconjugated Bilirubin 0.9 mg/dL (0.0-1.1) 04/23/18 21:00 AST 38 IU/L (14-46) 04/23/18 21:00 ALT 62 IU/L (9-52) H 04/23/18 21:00 Alkaline Phosphatase 93 IU/L (38-126) 04/23/18 21:00 Total Protein 6.3 g/dL (6.3-8.2) 04/23/18 21:00 Albumin 3.8 g/dL (3.5-5.0) 04/23/18 21:00 Lipase 70 IU/L (23-300) 04/23/18 21:00 Urine Color PALE YELLOW 04/23/18 22:25 Urine Appearance CLEAR 04/23/18 22:25 Urine pH 7.0 (5.0-7.5) 04/23/18 22:25 Ur Specific [place] 1.010 (1.002-1.030) 04/23/18 22:25 Urine Protein NEGATIVE (NEGATIVE) 04/23/18 22:25 Urine Ketones 1+ (NEGATIVE) H 04/23/18 22:25 Urine Blood 2+ (NEGATIVE) H 04/23/18 22:25 Urine Nitrate NEGATIVE (NEGATIVE) 04/23/18 22:25 Urine Bilirubin NEGATIVE (NEGATIVE) 04/23/18 22:25 Urine Urobilinogen NEGATIVE EU (0.2-1.0) 04/23/18 22:25 Ur Leukocyte Esterase NEGATIVE (NEGATIVE) 04/23/18: Urine RBC 1-3 /hpf (0-3) 04/23/18 22:25 Urine WBC 1-3 /hpf (0-3) 04/23/18 22:25 Ur Epithelial Cells TRACE /lpf (NONE-1+) 04/23/18: Urine Bacteria TRACE /hpf (NONE SEEN) H 04/23/18 22:25 Urine Glucose NEGATIVE (NEGATIVE) 04/23/18 22:25 Imaging Review: CTA of the chest, CT abdomen pelvis - preliminary report discussed with ED provider negative for PE or acute lung pathology. CT abdomen pelvis negative for any acute and intra-abdominal findings. Visualized and Interpreted imaging results: Yes Assessment & Plan Assessment: This is a very pleasant 48-year-old female with past medical history significant for HER2 positive breast cancer status post bilateral mastectomy on oral chemotherapy and status post radiation treatment (completed last 3 weeks ago) and most recently POD #3 status post a robotic assisted hysterectomy with BSO, ureterocele acral ligament colpopexy, bilateral ureterolysis, and excision of endometriosis who presents emergency department today for the 2nd time with complaints of abdominal pain and intractable nausea. #Intractable nausea - patient's symptoms still persist. Patient does have a history of gastritis and she has not on any PPIs or H2 blockers. Will give a dose IV now as patient is still struggling with oral intake due to nausea. Likely exacerbated by use of narcotic therapy postoperatively. Additionally patient has had loose very limited oral intake but has continued to take the narcotics postop. Her last dose was approximately 7:00 p.m. Continue with Zofran, Phenergan p.r.n. Patient also received a dose of Maalox in the ED. If patient is able to advance her diet then start oral daily PPI. #Abdominal pain - patient main complaint is of epigastric upper abdominal pain consistent symptoms with her history of gastritis. Patient is trying to avoid narcotics that she wants to done with the use of those for postop pain. Tylenol is available p.r.n.. And she is amenable to this. No NSAIDs at this time in setting of AK I #Acute kidney injury - patient's creatinine slightly elevated her baseline appears to be 0.7 and currently is 1.1. Likely pre renal in etiology as patient does appear dehydrated and has had poor oral intake over the last several days postoperatively. Patient received a L of IV fluid in the emergency department. We will continue with IV fluid hydration overnight until such time patient is able to tolerate appropriate amount of oral intake. Will encourage oral supplementation 1 patient's symptoms are little better under control. I did reassure patient that she may consider p.o. Trial now and advance as tolerated. Patient is concerned that it will exacerbate her symptoms. #Urinary retention -patient with a Wesley catheter in place and a leg bag. She reports postoperatively she was having issues with urinary retention before discharge and so a catheter was placed. Patient reports that she had follow-up scheduled on Wednesday to have this bag removed. Patient is requesting a voiding trial before discharge for this hospital stay. I discussed with the patient that it would be prudent to first discuss with her type copy examiner prior to removing the Wesley catheter considering the procedure. Consideration to contact patient's type copy examiner strong call in the morning for consideration of voiding trial tomorrow if they are amenable. Otherwise patient is already scheduled for follow-up appointment for catheter removal on Wednesday. #Breast cancer - continue patient's letrozole. Status post radiation therapy. She is followed by Dr. Janie Hagen FEN - IVF overnight as noted above. encourage PO trials and advance diet as tolerated. repeat bmp in am to monitor electrolytes. replace if needed. PPX - SCDs. encourage mobilization. patient is postop but anticipate short hospital stay. consider lovenox if patient should stay additional day. COR - FULL. Dispo - Patient admitted to observation status on medical floor for continued IVF hydration and symptom control.
[2018-04-24] MEDS ORDERED: PANTOPRAZOLE SODIUM 40 MG VIAL IVP ONE (01:10)
[2018-04-24] MEDS ORDERED: BISACODYL 10 MG SUPP PR PRN (01:21)
[2018-04-24] MEDS ORDERED: MAGNESIUM HYDROXIDE 30 ML UDCUP PO PRN (01:21)
[2018-04-24] MEDS ORDERED: LACTULOSE 20 GM/30 ML UDCUP PO PRN (01:21)
[2018-04-24] MEDS ORDERED: POLYETHYLENE GLYCOL 3350 17 GM PKT PO PRN (01:21)
[2018-04-24 04:59] LABS: PLATELET COUNT 153 10^3/uL (150-400)
[2018-04-24] MEDS: NS 1,000 ML IV SCH ×2 (07:16→17:30)
[2018-04-24] MEDS: SENNOSIDES/DOCUSATE SODIUM TAB PO SCH ×2 (08:16→22:29)
[2018-04-24] MEDS: ENOXAPARIN 40 MG/0.4 ML SYR SC SCH ×2 (08:17→11:32)
[2018-04-24] MEDS ORDERED: PANTOPRAZOLE SODIUM 40 MG TAB PO SCH (09:00)
[2018-04-24] MEDS ORDERED: TEARS/DEXTRAN 70/HYPROMELLOSE 15 ML OPHT.BTL EACHEYE PRN (12:54)
--- NOTE | 2018-04-24 13:02 | HOSPPROG ---
Hospitalist Progress Note Assessment/Plan: Tubromán is a 48 y/o female w HER2 positive breat ca s/p bilateral mastectomy and recent robotic assisted hysterectomy w BSO, ureterocele acral ligament colpopexy , bilateral ureterolysis, and excision of endometriosis who presents emergency department today for the 2nd time with complaints of abdominal pain and intractable nausea. First encounter, chart reviewed. *Intractable nausea and vomiting -was vomiting when I evaluated her, unable to keep clear liquids down -continue supportive care w IV fluids, k pad and antiemetics *Abdominal pain -epigastric area, hx of gastritis -change PPI to IV bid due to the above *TENA -likely pre-renal due to dehydration -recheck *urinary retention -had issues post op -patient received a text from her warp tester that ok to remove, was to be removed tomorrow. Removed today and has had 250 ml output -check PVR, no wesley to be placed due to recent surgery *breast ca -resumed Letrozole, s/p radiation -followed by Dr Janie Hagen -CT of abd showed nothing acute. CTA of chest showed no PE, metastatic disease to the sternum, sclerotic area in manubrium of the sternum-has had recent radiation to this area- will ask oncology to evaluate. *plan: she will require another midnight stay for evaluation, unable to take in oral intake, vomiting. will recheck labs in a.m., ask nursing staff to check PVR > Subjective: Tuba is c/o severe nausea. Objective: Vital Signs Temp Pulse Resp BP Pulse Ox 36.9 C 61 14 108/63 97 04/24/18 11:41 04/24/18 11:41 04/24/18 11:41 04/24/18 11:41 04/24/18 11:41 Laboratory Results 04/24/18 04:24 04/24/18 04:24 04/23/18 04/24/18 04/25/18 06:59 05:59 05:59 Intake Total Output Total Balance - Physical Exam Constitutional: uncomfortable Eyes: PERRL Ears, Nose, Mouth, Throat: hearing normal Cardiovascular: regular rate and rhythym Respiratory: no respiratory distress Gastrointestinal: normoactive bowel sounds, soft, non-tender abdomen Skin: warm Musculoskeletal: full muscle strength Neurologic: AAOx3 Psychiatric: interacting appropriately ICD10 Worksheet Patient Problems: Problems Problem Status Onset Intractable nausea and vomiting Acute Breast CA Acute Endometriosis of pelvic peritoneum Acute Fracture of tibia and fibula Acute Menorrhagia Acute
[2018-04-24] MEDS: SUCRALFATE 1 GM/10 ML UDCUP PO PRN (13:34)
--- NOTE | 2018-04-24 15:02 | ASMTCMCOM ---
CM Note CM Note Notes: 48yo female admitted for N/V, Upper abd pain, Endometriosis pelvic peritoneum. She has a Hx of HER 2 + Breast CA s/p bilat Mastectomies, oral chemo, radiation; Hysterectomy; Tib/fib fx; Gastritis. Patient being treated for her breast CA. Lives with her Rudi in [place]. May not have discharge needs. CM to follow. Date Signed: 04/24/2018 03:01 PM Electronically Signed By:Queta Herzog LCSW
[2018-04-24] MEDS: LETROZOLE 2.5 MG TAB PO SCH (17:29)
--- NOTE | 2018-04-24 19:33 | PDMN ---
Medical Necessity Medical necessity: MCG: M370 vomiting: intractable vomiting unable to maintain PO, persistent nausea, abd pain, TENA, urinary retention, PMHx: Br. Ca., last radiation 3 weeks ago, POD#3 for robotic assist. hyst. with BSO , ureterocele acrial ligament colpopexy, bilat. ureterolysis and excision of endometriosis. > 2 MN needed for ongoing med nec care, further eval and tx.
[2018-04-24] MEDS: PANTOPRAZOLE SODIUM 40 MG VIAL IVP SCH (22:29)
[2018-04-25] MEDS: NS 1,000 ML IV SCH ×2 (01:19→17:24)
[2018-04-25] MEDS: PANTOPRAZOLE SODIUM 40 MG VIAL IVP SCH ×3 (02:02→20:50)
[2018-04-25] MEDS: SUCRALFATE 1 GM/10 ML UDCUP PO PRN ×3 (02:48→15:42)
[2018-04-25] MEDS ORDERED: Herbals/Supplements -Info Only PO SCH (09:00)
[2018-04-25] MEDS: ENOXAPARIN 40 MG/0.4 ML SYR SC SCH (09:15)
[2018-04-25] MEDS: SENNOSIDES/DOCUSATE SODIUM TAB PO SCH ×2 (09:15→20:51)
--- NOTE | 2018-04-25 11:22 | HOSPPROG ---
Hospitalist Progress Note Assessment/Plan: Tubromán is a 48 y/o female w HER2 positive breast ca s/p bilateral mastectomy and recent robotic assisted hysterectomy w BSO, ureterocele acral ligament colpopexy , bilateral ureterolysis, and excision of endometriosis who presents emergency department today for the 2nd time with complaints of abdominal pain and intractable nausea. Reviewed her care w Dr Janie Hagen. *Intractable nausea and vomiting -better today -little relief w Zofran, gets relief w Ativan -may have a component of an ileus due to recent surgery *radiation induced esophagitis -supportive care w PPI and Carafate *Abdominal pain -epigastric area, hx of gastritis -change PPI to IV bid due to the above *uti -has increase frequency, burning and urgency -has some urinary retention -asked for urine sent last night to be cultured -ceftriaxone started today *TENA -likely pre-renal due to dehydration -resolved *urinary retention -had issues post op from her hysterectomy and now ongoing -wesley removed yesterday, she is voiding but still has retention *hypocalcemia -check an ionized calcium *breast ca -resumed Letrozole, s/p radiation -followed by Dr Janie Hagen -CT of abd showed nothing acute. CTA of chest showed no PE, metastatic disease to the sternum, sclerotic area in manubrium of the sternum-has had recent radiation to this area- appreciate Dr Hagen and Dr Ansari. Dr Bill Pina may be seeing her later today. *plan: continue clear liquids, IV hydration, abx therapy, urine cx pending, repeat labs in a.m. including ionized calcium. Subjective: Tuba is feeling better today, has ongoing nausea, no pain. Objective: Vital Signs Temp Pulse Resp BP Pulse Ox 37.3 C 59 L 16 117/64 98 04/25/18 07:56 04/25/18 07:56 04/25/18 07:56 04/25/18 07:56 04/25/18 07:56 Laboratory Results 04/25/18 04:40 04/24/18 04/25/18 04/26/18 05:59 05:59 05:59 Intake Total 2900 362 Output Total 3790 1150 Balance -890 -788 - Physical Exam Constitutional: appears nourished Eyes: PERRL Ears, Nose, Mouth, Throat: hearing normal Cardiovascular: regular rate and rhythym Respiratory: no respiratory distress Gastrointestinal: normoactive bowel sounds Genitourinary: No no bladder fullness Skin: warm Musculoskeletal: full muscle strength Neurologic: AAOx3 Psychiatric: interacting appropriately ICD10 Worksheet Patient Problems: Problems Problem Status Onset Intractable nausea and vomiting Acute Breast CA Acute Endometriosis of pelvic peritoneum Acute Fracture of tibia and fibula Acute Menorrhagia Acute
[2018-04-25] MEDS ORDERED: PROTOCOL CALCIUM 1 DOSE IV PRN (14:58)
[2018-04-25] MEDS: LETROZOLE 2.5 MG TAB PO SCH (17:14)
--- NOTE | 2018-04-25 17:19 | SOAPPROG ---
SOAP Progress Note Assessment/Plan: Assessment: Epigastric pain and pain with p.o. liquids and solids. Clinicially Tuba does not appear to have an ileus contributing to her symptoms. Likely GI cause No evidence of post op bleed, infection, bowel or lower urinary tract injury. Some of her RLQ pain, which is different from her chief complaint, is from her upper incision which is common. Plan: 04/25/18 17:16 Continue hospitalist management. Consider GI evaluation Subjective: Tuba admitted for epigastric area pain, nausea, pain with p.o. liquids and solids. Not feeling significantly better this afternoon per her report. Lower abdominal pain improving each day. Voiding somewhat smaller amounts but her PVR was aprox 140 ml this morning. Objective: Vital Signs Temp Pulse Resp BP Pulse Ox 37.1 C 69 16 115/71 99 04/25/18 12:00 04/25/18 15:55 04/25/18 15:55 04/25/18 15:55 04/25/18 15:55 Laboratory Results 04/25/18 04:40 04/24/18 04/25/18 04/26/18 05:59 05:59 05:59 Intake Total 2900 362 Output Total 3790 1400 Balance -890 -1038 Physical Exam - Physical Exam General Appearance: WD/WN, alert, no apparent distress Respiratory: lungs clear Cardiac/Chest: regular rate, rhythm Abdomen: normal bowel sounds, soft, other (Abdomen flat and soft.) Skin: normal color, warm/dry Neuro/Psych: alert, normal mood/affect ICD10 Worksheet Patient Problems: Problems Problem Status Onset Intractable nausea and vomiting Acute Breast CA Acute Endometriosis of pelvic peritoneum Acute Fracture of tibia and fibula Acute Menorrhagia Acute
[2018-04-25] MEDS ORDERED: CALCIUM GLUCONATE 50 ML IV ONE (19:29)
--- NOTE | 2018-04-26 05:08 | GCON ---
ONCOLOGY CONSULTATION REASON FOR CONSULTATION: Oligometastatic breast cancer with recent admission for nausea, vomiting. HISTORY OF PRESENT ILLNESS: The patient is a very pleasant 48-year-old female with a recent diagnosis of oligometastatic breast cancer, admitted with refractory nausea, vomiting following recent oophorectomy. 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 She was 41 at the time. Both the DCIS and invasive carcinoma were high-grade with angiolymphatic invasion. The tumor was ER/CT positive and HER2-. She underwent bilateral mastectomies and received tamoxifen for a little over a year, but tolerated it poorly. BRCA testing at that time was negative. In July of 2017, she was seen in the ER with a cough and had a questionable pulmonary nodule on chest x-ray. Tumor marker was elevated. A PET-CT showed a 5 mm non PET avid left lower lobe pulmonary nodule with multifocal uptake throughout the sternum. There was also uptake in the manubrium. In addition, there was soft tissue uptake and thickening just to the left of the sternum without a specific mass. A CT-guided biopsy of the parasternal soft tissue revealed metastatic adenocarcinoma that was ER/CT positive at 80% and 90%, respectively. HER2 was negative with an IHC of 1+. She was initially started on Lupron along with the letrozole and Ibrance. Followup PET scan in January of this year, showed resolution of the PET uptake in the sternal and parasternal soft tissue region. The patient received proton beam therapy in [place] and finished that radiation about 2-1/2 weeks ago. The radiation was administered to the left chest wall, left supraclavicular region, left axillary region as well as the sternum. In the days following completion of the radiation, she started developing some mid epigastric discomfort. She was seen in the office early last week and was prescribed Carafate. However, she had not yet started it. She underwent an oophorectomy with laparoscopic hysterectomy on April 20, with Dr. Bill Pina. The pathology from that surgery showed no evidence of malignancy. Following the surgery, she continued to have worsening mid epigastric discomfort and nausea, vomiting. She was seen in the emergency room on Wednesday and hydrated and given antiemetics. However, due to ongoing symptoms, she returned on Wednesday. CT scan of the chest, abdomen and pelvis showed no acute findings. She did have the expected sclerotic changes in the sternum and manubrium related to prior treatment. No new metastatic lesions were identified. Abdominal pelvic CT showed expected postoperative features, with no evidence of mechanical obstruction. A urinalysis showed pyuria. She has been afebrile. Urine culture is pending and she has been started on empiric antibiotics. She has received IV Protonix with p.r.n. Carafate and Ativan. She continues to have significant nausea and anorexia. She has been afebrile. PAST MEDICAL HISTORY: Breast cancer, as outlined above. Prior history of gastritis, treated with a PPI. PAST SURGICAL HISTORY: Bilateral mastectomies with implant reconstruction, prior tonsillectomy. FAMILY HISTORY: Noncontributory. SOCIAL HISTORY: She is . 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 She has 2 children. REVIEW OF SYSTEMS: Ten-point review of systems is negative, other than in HPI. PHYSICAL EXAM: GENERAL: She is comfortable appearing, sitting in bed, mildly nauseated. VITAL SIGNS: Blood pressure 115/71, heart rate 69, O2 saturation 99 %, respirations 16. She is afebrile. HEENT: Pupils equal. Sclerae anicteric. Oropharynx clear. LUNGS: Clear to auscultation. HEART: Regular rate. ABDOMEN: Soft. Mid epigastric tenderness to palpation. Well-healed laparoscopy incisions with no signs of infection. Bowel sounds are present. EXTREMITIES: No edema. LABORATORY DATA: White blood cell count 3.6, hematocrit 34.7. UA with pyuria. IMPRESSION: This is a 48-year-old female with oligometastatic recurrent breast cancer, recently status post bilateral oophorectomy and hysterectomy, admitted with refractory nausea, vomiting. The patient completed radiation therapy, proton beam therapy to the chest and sternum 2-3 weeks ago and has had mid- epigastric discomfort for at least the last week. I suspect there is a component of radiation esophagitis and/or gastritis. In addition, the patient has a prior history of gastritis. She is currently on a PPI with Carafate. There may be a component of UTI contributing to the nausea. She is on letrozole. Ibrance is currently being held due to potential for neutropenia. If her symptoms of nausea, vomiting and mid epigastric pain are not improving in the coming days, consideration could be given to a GI evaluation with possible EGD. I will continue to follow along with you. /[id number]/MODL MTDD
[2018-04-26 07:37] VITALS: BP 124/73
[2018-04-26] MEDS: PANTOPRAZOLE SODIUM 40 MG VIAL IVP SCH (08:22)
[2018-04-26] MEDS ORDERED: Palbociclib [Ibrance] 100 MG PO SCH (09:00)
[2018-04-26] MEDS: ENOXAPARIN 40 MG/0.4 ML SYR SC SCH (10:24)
[2018-04-26] MEDS: SENNOSIDES/DOCUSATE SODIUM TAB PO SCH (10:24)
--- NOTE | 2018-04-26 11:00 | SOAPPROG ---
SOAP Progress Note Assessment/Plan: Assessment: 1. Nausea/vomitting-improved on PPI and prn carafate. Likely esphagitis/ gastritis seconary to recent sternal radiation, stress, surgery. 2. Oligometastatic breast cancer-on letrozole. Ibrance being held for now. 3. S/p hyst/oopherectomy-seen by Dr. Pina. No acute issues. 4. UTI-urine culture with >100K gram negative. On cephalosporin. afeb. Plan: 1. Change PPI to oral, advance diet. 2. Levoquin. 3 Follow up next week with me. 4. If GERD sx continue, consider outpatient GI eval. 5. Patient eager for discharge. Recommended eating reg diet prior to discharge, but she wants to be discharged and eat at home. Will call if any problems. 04/26/18 10:56 Subjective: ate crackers last night. Doing ok with that. Wants to be discharged. Abdominal pain better. Objective: Vital Signs Temp Pulse Resp BP Pulse Ox 37.2 C 75 14 124/73 H 99 04/26/18 07:36 04/26/18 07:36 04/26/18 07:36 04/26/18 07:36 04/26/18 07:36 Laboratory Results 04/26/18 05:03 04/25/18 04/26/18 04/27/18 05:59 05:59 05:59 Intake Total 2900 912 Output Total 3790 1500 350 Balance -890 -588 -350 Physical Exam - Physical Exam General Appearance: alert, no apparent distress Neck: supple Respiratory: lungs clear Abdomen: non-tender, soft Extremities: No pedal edema Neuro/Psych: alert, normal mood/affect, oriented x 3 ICD10 Worksheet Patient Problems: Problems Problem Status Onset Intractable nausea and vomiting Acute Breast CA Acute Constipation Acute Endometriosis of pelvic peritoneum Acute Fecal impaction Acute Fracture of tibia and fibula Acute Menorrhagia Acute
--- NOTE | 2018-04-26 11:04 | PDDCSUM ---
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 Reviewed her care w Dr Janie Hagen. *Intractable nausea and vomiting -now improved, etiology presumed 2/2 next *radiation induced esophagitis/gastritis--presumed 2/2 recent sternal radiation -improved on PPI and carafate, will f/u with oncology and consider GI consultation if not improving as expected *uti -started on ctx in house, cultures not yet final but > 100K GNR, dc to complete course with levofloxacin, patient to call onc to be sure this is appropriate abx based on final culture data * s/p hyst/oophorectomy: Dr. Pina evaluated in house, no acute issues *TENA -resolved *urinary retention -in post operative period, now seems to be resolved *breast ca -resumed Letrozole, s/p radiation, holding Ibrance for now -f/u with Dr. Hagen after discharge dc home f/u with Dr. Hagen as scheduled > 35 min spent in dc more than half in coordination of care
--- NOTE | 2018-04-26 11:26 | ASMTLACE ---
LACE Length of stay for Answers: 1 day current admission Acuity / Level of Answers: No Care: Did the patient have an inpatient admission? Comorbidities - select Answers: Any tumor (including all that apply lymphoma or leukemia) Other Notes: tib/fib fx # of Emergency department Answers: 1-2 visits in the last 6 months Score: 5 Date Signed: 04/26/2018 11:26 AM Electronically Signed By:Naomi Gr RN
--- NOTE | 2018-04-26 11:29 | ASMTCMCOM ---
CM Note CM Note Notes: Patient plan of care reviewed in rounds. She has been medically cleared for discharge to home. No needs identiifed. CM available should needs arise. Plan: DC to home no needs. Date Signed: 04/26/2018 11:29 AM Electronically Signed By:Naomi Gr RN
[2018-04-26] MEDS ORDERED: CALCIUM GLUCONATE 2 GM in NS 50 ML IV ONE (11:46)
== END 2018-04-26 11:27 | disposition home or self-care (01) | DRG 394 ==
LOC: F3N 04-24 00:29 → OBSVTOIN 04-24 14:36 → F1N 04-25 15:50
PROVIDERS: ADMIT Family Medicine; ATTEND Family Medicine
DX: K52.0 Gastroenteritis and colitis due to radiation (principal); N17.9 Acute kidney failure, unspecified; N39.0 Urinary tract infection, site not specified; R33.9 Retention of urine, unspecified; Z96.0 Presence of urogenital implants; Z85.3 Personal history of malignant neoplasm of breast; Z92.3 Personal history of irradiation
CPT/HCPCS: 82435-PO; 82565-PO; 82947-PO; 84132-PO; 84295-PO; 84520-PO; 85014-PO; 96374; J0610; J0696; J1650; J2060; J2405; Q9967